=== PATIENT | female | born 1985 | race Two or more races ===

== ENCOUNTER 2024-11-09 12:17 | Emergency (ER) | payer BC, OTHER ==
[~2024-11-09] VITALS: Ht 162.6 cm; Wt 103.9 kg
--- NOTE | 2024-11-09 12:31 | ED.PDOC ---
GI ASSESSMENT HPI Comments 39 year old female presents to the ED with chief complaint of abdominal pain. Patient reports that she has been experiencing RLQ abdominal pain with associated radiation to her right lower back, nausea, and diarrhea for the past 5 days. Patient relays that her pain is constant, but comes in waves of intensity. Patient states she visited [facility] 2 days ago and today, receiving blood work and an XR of her spine with no abnormalities being noted, however, she was advised to come to the ED for further evaluation. Patient denies any vomiting, dysuria, hematuria, fever, chills, dizziness, headache, or melena. Chief Complaint: Abdominal Pain Time Seen by MD: 12:27 Primary Care Provider: NONE Reviewed Notes: Nurses Notes, Medications, Allergies Allergies: Coded Allergies: NO KNOWN ALLERGIES (Unverified , 03/10/14) Home Meds Active Scripts Tramadol Hcl (Tramadol Hcl) 50 Mg Tab, 50 MG PO Q8HP PRN for 5 Days, #15 TAB Prov:DONNA LONGO MD 11/09/24 Information Source: Patient Mode of Arrival: Ambulatory Timing: Days Duration: Since onset Prehospital treatment: None Quality: Sharp Vomitus: None Stool: Watery Severity: Moderate Recent: None Recent Hx of: None Pain Location: RLQ Modifying Factors: Nothing Associated sign and symptoms: Nausea, Diarrhea, Abdominal Pain Past Medical History PAST MEDICAL HISTORY: HTN Past Medical History (Other): Prediabetes Surgical History: Denies all surgeries DIRECT SERVICE PROFESSIONAL History: No Pertinent DIRECT SERVICE PROFESSIONAL History Family History Family History: Reviewed,noncontributory to illness, Family hx of DM, Family hx of Cancer, Family hx of heart gavino Social History Smoker: Non-Smoker Alcohol: Occasionally Drugs: Denies Drug Use Lives In: Home Constitutional: denies: chills, diaphoresis, fatigue, fever, malaise, sweats, weakness, others EENTM: denies: blurred vision, double vision, ear bleeding, ear discharge, ear drainage, ear pain, ear ringing, eye pain, eye redness, hearing loss, mouth pa in, mouth swelling, nasal discharge, nose bleeding, nose congestion, nose pain, photophobia, tearing, throat pain, throat swelling, voice changes, others Respiratory: denies: cough, hemoptysis, orthopnea, SOB at rest, shortness of breath, SOB with excertion, stridor, wheezing, others Cardiovascular: denies: chest pain, dizzy spells, diaphoresis, Dyspnea on exertion, edema, irregular heart beat, left arm pain, lightheadedness, palpitations, PND, syncope, others Gastrointestinal: reports: abdominal pain, diarrhea, nausea; denies: abdomen distended, blood streaked bowels, constipated, dysphagia, difficulty swallowing, hematemesis, melena, poor appetite, poor fluid intake, rectal bleeding, rectal pain, vomiting, others Genitourinary: denies: abnormal vagina bleeding, burning, dyspareunia, dysuria, flank pain, frequency, hematuria, incontinence, pain, , vagina discharge, urgency, others Neurological: denies: dizziness, fainting, headache, left sided numbness, left sided weakness, numbness, paresthesia, pre-existing deficit, right sided numbness, right sided weakness, seizure, speech problems, tingling, tremors, weakness, others Musculoskeletal: denies: back pain, gout, joint pain, joint swelling, muscle pain, muscle stiffness, neck pain, others Integumetry: denies: bruises, change in color, change in hair/nails, dryness, laceration, lesions, lumps, rash, wounds, others Allergic/Immunocompromised: denies: Difficulty Healing, Frequent Infections, Hives, Itching, others Hematologic/Lymphatic: denies: anemia, blood clots, easy bleeding, easy bruising, swollen glands, others Endocrine: denies: excessive hunger, excessive sweating, excessive thirst, excessive urination, flushing, intolerance to cold, intolerance to heat, unexplained weight gain, unexplained weight loss, others Psychiatric: denies: anxiety, bipolar disorder, depression, hopeless, panic disorder, schizophrenia, sleepless, suicidal, others All Other Systems: Reviewed and Negative Physical Exam General Appearance: No Apparent Distress HEENT: Normal ENT Inspection, Pharynx Normal, TMs Normal Neck: Full Range of Motion, Non-Tender, Normal, Normal Inspection Respiratory: Chest Non-Tender, Lungs Clear, No Accessory Muscle Use, No Respiratory Distress, Normal Breath Sounds Cardiovascular: No Edema, No JVD, No Murmur, No Gallop, Normal Peripheral Pulses, Regular Rate/Rhythm Breast Exam: Deferred Gastrointestinal: No Organomegaly, Non Tender, No Pulsatile Mass, Normal Bowel Sounds, Soft Genitalia: Deferred Pelvic: Deferred Rectal: Deferred Extremities: No calf tenderness, Normal capillary refill, Normal inspection, Normal range of motion, Non-tender, No pedal edema Musculoskeletal : Apperance: Normal Neurologic: Alert, set up person II-XII nml as Tested, No Motor Deficits, Normal Affect, Normal Mood, No Sensory Deficits Cerebellar Function: Normal Reflexes: Normal Skin: Dry, Normal Color, Warm Lymphatic: No Adenopathy Was a procedure done? Was a procedure done?: No GI differential Dx Differential Diagnosis: Bowel Obstruction, Diverticular disease, Gastritis/PUD, Gastroenteritis, Inflammatory BD, Electrolyte Imbalance X-Ray, Labs, Meds, VS Vital Signs Date Time Temp Pulse Resp B/P (MAP) Pulse Ox O2 Delivery O2 Flow Rate FiO2 11/09/24 12:25 98.4 82 20 154/97 (116) 8 Lab Test 11/09/24 13:30 Range/Units White Blood Count 7.5 4.4-10.8 10^3/uL Red Blood Count 4.54 4.0-5.20 10^6/uL Hemoglobin 14.2 12.2-16.2 g/dL Hematocrit 41.5 36.0-46.0 % Mean Corpuscular Volume 91.3 80.0-100.0 fL Mean Corpuscular Hemoglobin 31.3 28.0-32.0 pg Mean Corpuscular Hemoglobin Concent 34.3 32.0-36.0 g/dL Red Cell Distribution Width 13.5 11.8-14.3 % Platelet Count 303 140-450 10^3/uL Mean Platelet Volume 7.8 6.9-10.8 fL Neutrophils (%) (Auto) 63.0 37.0-80.0 % Lymphocytes (%) (Auto) 24.6 10.0-50.0 % Monocytes (%) (Auto) 8.5 0.0-12.0 % Eosinophils (%) (Auto) 3.3 0.0-7.0 % Basophils (%) (Auto) 0.6 0.0-2.0 % Neutrophils # (Auto) 4.7 1.6-8.6 10 ^3/uL Lymphocytes # (Auto) 1.8 0.4-5.4 10 ^3/uL Monocytes # (Auto) 0.6 0-1.3 10 ^3/uL Eosinophils # (Auto) 0.2 0-0.8 10 ^3/uL Basophils # (Auto) 0 0-0.2 10 ^3/uL Nucleated Red Blood Cells 0.1 % Urine Color Yellow Yellow Urine Clarity Clear Clear Urine pH 6.5 5.0-9.0 Urine Specific [place] 1.031 1.001-1.035 Urine Protein Negative Negative Urine Ketones Negative Negative Urine Blood Negative Negative /uL Urine Nitrite Negative Negative Urine Bilirubin Negative Negative Urine Urobilinogen Normal Negative mg/dL Urine Leukocyte Esterase Negative Negative /uL Urine RBC 2 0 - 4 /hpf Urine Microscopic WBC 1 0-5 /HPF Urine Squamous Epithelial Cells Mod <5 /hpf Urine Bacteria None seen None Seen /hpf Urine Glucose Normal Normal mg/dL Sodium Level 139 136-145 mmol/L Potassium Level 4.0 3.5-5.1 mmol/L Chloride Level 106 98-107 mmol/L Carbon Dioxide Level 26 20-31 mmol/L Anion Gap 7 5-15 Blood Urea Nitrogen 12 9-23 mg/dL Creatinine 0.75 0.550-1.02 mg/dL Glomerular Filtration Rate Calc 103 >90 mL/min BUN/Creatinine Ratio 16.0 10.0-20.0 Serum Glucose 133 H 74-106 mg/dL Calcium Level 9.7 8.7-10.4 mg/dL Total Bilirubin 0.4 0.2-1.0 mg/dL Aspartate Amino Transferase (AST) 23 13-40 U/L Alanine Aminotransferase (ALT) 36 7-40 U/L Alkaline Phosphatase 69 46-116 U/L Total Protein 7.1 5.7-8.2 g/dL Albumin 4.5 3.2-4.8 g/dL CT Abd/Pel indicates: No acute intraabdominal abnormality. Nonobstructive bilateral kidney stones. Right middle lobe consolidation. The patient's chemistry panel is within normal limits The patient's CBC is within normal limits The urine test is negative for infection The patient was given a prescription of tramadol The patient is to return to the emergency department's the condition worsens. Images Reviewed?: Images reviewed and evaluated by me Time of 1ST Reevaluation: 15:41 Reevaluation 1ST: Unchanged Patient Education/Counseling: Diagnosis, Treatment Family Education/Counseling: No Family Present Additional Information -Reviewed patient's previous visit(s): 07/09/16 for UTI - The following tests were ordered, and results were reviewed by me: - Additional information was gathered from interviewing the following independent Historian: None - I reviewed and agreed with the following test results read by other provider: - I discussed treatments and results with medical personnel and: patient Comprehensive systems review obtained and negative except for what is stated in the HPI. Departure 1 Departure Time of Disposition: 15:41 Impression: Primary Impression: Nephrolithiasis Disposition: 01 HOME / SELF CARE / HOMELESS Condition: Fair e-Prescriptions Tramadol Hcl (Tramadol Hcl) 50 Mg Tab 50 MG PO Q8HP PRN for 5 Days, #15 TAB Prov: DONNA LONGO MD 11/09/24 Discharged With: Self Critical Care Note Critical Care Time?: No Stability Stability form required: No Heart Score Heart Score: Heart Score Response (Comments) Value History N/A 0 EKG N/A 0 Age N/A 0 Risk Factors N/A 0 Troponin N/A 0 Total 0 I personally scribed for DONNA LONGO MD ([email or web address]) on 11/09/24 at 12:31. Electronically submitted by Juan Antonio Guerra ([email or web address]). I personally scribed for DONNA LONGO MD ([email or web address]) on 11/09/24 at 14:21. Electronically submitted by Juan Antonio Guerra ([email or web address]). DONNA LONGO MD Nov 09, 2024 12:31
--- NOTE | 2024-11-09 13:44 | DVH ---
CT CT AB PEL WO CON-NO ORAL OR IV INDICATION: pain EXAM DATE: 11/09/2024 01:16 PM COMPARISON: None RADIATION DOSE: CTDIvol: 25 mGy, DLP: 1405 mGy*cm PROCEDURE: Helical CT images were obtained of the abdomen and pelvis without IV contrast Sagittal and coronal reconstructions are provided. ORAL CONTRAST: None. ADDITIONAL IMAGES / REFORMATS: None All C T scans at this medical facility are performed using dose modulation techniques as appropriate to a p erformed exam including the following: Automated exposure control was utilized; adjustment of the MA and/or KV according to patient size; and use of iterative reconstruction technique. FINDINGS: LUNG BASE: Right middle lobe consolidation. LIVER: Normal. GALLBLADDER AND BILIARY TREE: No calcified gallstones. Normal caliber wall. No intra- or extrahepatic biliary ductal dilation. PANCREAS: Normal. SPLEEN: Normal. BOWEL: Normal. Normal appendix. ADRENALS: Normal. KIDNEYS AND URETER: Nonobstructive bilateral kidney stones. BLADDER: Normal. REPRODUCTIVE ORGANS: Small right ovarian cyst. LYMPH NODES:No lymphadenopathy. PERITONEUM: No ascites or free air. No other fluid collection. VESSELS: Scattered atherosclerotic calcifications are noted. RETROPERITONEUM: Normal. ABDOMINAL WALL: Small fat containing umbilical hernia. BONES: Scattered osseous degenerative changes are noted. IMPRESSION: No acute intraabdominal abnormality. Nonobstructive bilateral kidney stones. Right middle lobe consolidation.
[2024-11-09 13:48] LABS: Basophils # (auto) 0 10 ^3/uL (0-0.2); Basophils % (auto) 0.6 % (0.0-2.0); Eosinophils # (auto) 0.2 10 ^3/uL (0-0.8); Eosinophils % (auto) 3.3 % (0.0-7.0); Hematocrit 41.5 % (36.0-46.0); Hemoglobin 14.2 g/dL (12.2-16.2); Lymphocytes # (auto) 1.8 10 ^3/uL (0.4-5.4); Lymphocytes % (auto) 24.6 % (10.0-50.0); Mean Corpuscular Hemoglobin 31.3 pg (28.0-32.0); Mean Corpuscular Hgb Conc. 34.3 g/dL (32.0-36.0); Mean Corpuscular Volume 91.3 fL (80.0-100.0); Monocytes # (auto) 0.6 10 ^3/uL (0-1.3); Monocytes % (auto) 8.5 % (0.0-12.0); Neutrophils # (auto) 4.7 10 ^3/uL (1.6-8.6); Nucleated Red Blood Cells % 0.1 %; Platelet Count (auto) 303 10^3/uL (140-450); Red Blood Cells 4.54 10^6/uL (4.0-5.20); Red Cell Distribution Width 13.5 % (11.8-14.3); White Blood Cell 7.5 10^3/uL (4.4-10.8)
[2024-11-09 14:09] LABS: Alanine Aminotransferase 36 U/L (7-40); Albumin 4.5 g/dL (3.2-4.8); Alkaline Phosphatase 69 U/L (46-116); Anion Gap 7 (5-15); Aspartate Aminotransferase 23 U/L (13-40); Bilirubin, Total 0.4 mg/dL (0.2-1.0); Blood Urea Nitrogen 12 mg/dL (9-23); Calcium 9.7 mg/dL (8.7-10.4); Carbon Dioxide 26 mmol/L (20-31); Chloride 106 mmol/L (98-107); Sodium 139 mmol/L (136-145); Total Protein 7.1 g/dL (5.7-8.2)
[2024-11-09 14:11] LABS: Glucose 133 mg/dL (74-106); Urine Bacteria None Seen /hpf (None Seen)
[2024-11-09 14:33] LABS: Urine Blood Negative /uL (Negative); Urine Clarity Clear (Clear); Urine Color Yellow (Yellow); Urine Protein, UAD Negative (Negative); Urine Specific Gravity 1.031 (1.001-1.035); Urine Squamous Epithelial Cell MOD /hpf (<5); Urine Urobilinogen Normal (Negative); Urine WBC 1 /HPF (0-5); Urine pH 6.5 (5.0-9.0)
[2024-11-09] MEDS ORDERED: TRAM50TA2 PO (15:25)
[2024-11-09] MEDS ORDERED: ZOFR4T PO (15:42)
[2024-11-09 15:52] VITALS: BP 142/89; PULSE 18; RESP 18; TEMP 98.6; O2SAT 99
== END 2024-11-09 15:55 | disposition home or self-care (01) ==
LOC: ER 12:17
DX: N20.0 Calculus of kidney (principal); I10 Essential (primary) hypertension
CPT/HCPCS: 36415; 74176; 80053; 81001; 85025